=== PATIENT | female | born 1995 | race Caucasian/White ===

== ENCOUNTER 2022-11-14 04:40 | Emergency (ER) | payer SELFPAY ==
[2022-11-14 04:49] VITALS: BP 151/94; PULSE 92; RESP 16; TEMP 37; O2SAT 99; BMI 32.5
[2022-11-14 04:57] VITALS: BP 151/94; PULSE 94; RESP 16; O2SAT 100
--- NOTE | 2022-11-14 05:17 | ED_ITS ---
HPI - URI/Sore Throat General: Chief Complaint: Upper Respiratory Infection Stated Complaint: Throat Pain Cant Talk Time Seen by Provider: 11/14/22 04:49 Source: patient History of Present Illness: 27 year old female with several days of cough and congestion. She presents with increasing throat pain. She has a horse voice this morning. She kept thinking things would get better, but she did not. MD elicited complaint: cough, sore throat, rhinorrhea and nasal congestion Onset (ago): day(s) Consistency: constant and progressively worsening Severity: moderate Description of mucous: watery Able to tolerate fluids by mouth: Yes Associated symptoms: Reports change in voice, congestion, cough, nausea, rhinorrhea and sore throat; Deny abdominal pain, chills, chest pain, diarrhea, fever(s) or vomiting Review of Systems Const: Denies: fever(s) or chills ENMT: Reports: uvular edema Card: Denies: chest pain GI: Reports: nausea; Denies: abdominal pain, vomiting or diarrhea [facility] ED Female Reproductive History: Date of last menstrual period: 10/31/22 Physical Exam Const: COMMON NORMALS: no acute distress GENERAL APPEARANCE: cooperative; not ill appearing and not frail appearing HENMT: COMMON NORMALS: normocephalic, atraumatic and Normal external nose present HEAD & SCALP: normocephalic and atraumatic FACE & SINUS: normal facial exam and face symmetric NOSE: Normal external nose present MOUTH: Normal oral and palatal mucosa present THROAT: posterior oropharynx abnormal edema and erythema; no exudates and uvular edema Eye: COMMON NORMALS: Equal, round and reactive pupils present and EOMs intact bilaterally PUPIL: Yes Equal, round and reactive pupils present Neck/C-Spine: GENERAL: Yes trachea midline Chest: CHEST: Yes Symmetrical chest wall rise Resp: COMMON NORMALS: normal respiratory effort, No retractions, No use of accessory muscles and clear to auscultation bilaterally AUSCULTATION: clear to auscultation bilaterally Cardio: COMMON NORMALS: regular rate and regular rhythm RATE: regular rate RHYTHM: regular rhythm GI: COMMON NORMALS: Normal to inspection, nondistended, normoactive bowel sounds present Extremity: COMMON NORMALS: no pedal edema Neuro: ALLEN COMA SCALE: document GCS findings Allen coma scale eye opening: Spontaneous [place] coma scale verbal response: Orientated [place] coma scale motor response: Obey commands [place] coma scale total score: 15 SENSORY EXAM: Yes extremities (intact) Psych: COMMON NORMALS: speech normal SPEECH: Yes normal speech Skin: COMMON NORMALS: no rashes or lesions noted GENERAL SKIN EXAM: no rashes or lesions noted Course Vital Signs: Vital signs: Vital Signs Temperature 98.6 F 11/14/22 05:41 Pulse Rate 94 11/14/22 05:41 Respiratory Rate 16 11/14/22 05:41 Blood Pressure 151/94 11/14/22 05:41 Pulse Oximetry 100 11/14/22 05:41 MDM - URI/Sore Throat Medical Decision Making With over one week of symptoms, we'll go ahead and treat. She's given dexametha sone, antibiotics. Return for worsening symptoms. Discharge Plan Discharge Patient Disposition: Home Clinical Impression: Pharyngitis, Uvulitis Condition: Stable Prescriptions: New cephalexin 500 mg capsule 500 mg PO Q6H 10 Days Qty: 40 0RF ketorolac 10 mg tablet 10 mg PO TID PRN (Reason: pain) Qty: 10 0RF Discharge Orders: Discharge ED (Routine); Ordered 11/14/22 Ordered By: Troy Christiansen Patient Instructions: Tonsillitis (ED), Uvulitis (ED), Opioid Safety, Pain Management Activity Restrictions/Additional Instructions: Return for any worsening symptoms despite treatment Coding Level of Care Code ED Building Certifier for Bc Hinojosa
[2022-11-14] MEDS: dexamethasone 4 mg Tablet 10 MG PO (05:34)
[2022-11-14] MEDS: cephALEXin 500 mg Capsule PO (05:34)
[2022-11-14] MEDS: lidocaine 2% viscous 15 ML, aluminum-mag hydrox-simethicon 30 ML, sucralfate oral liq 1 GM PO (05:35)
[2022-11-14] MEDS: oxyCODONE-APAP 5-325 mg Tablet 1 TAB PO (05:35)
[2022-11-14 05:41] VITALS: BP 151/94; PULSE 94; RESP 16; TEMP 37; O2SAT 100
--- NOTE | 2022-12-03 14:56 | DCPLANNER ---
late entry - patient called due to no primary care physician - appointment scheduled with [facility]
== END 2022-11-14 05:42 | disposition home or self-care (01) ==
PROVIDERS: Emergency Provider Emergency Medicine
DX: J02.9 Acute pharyngitis, unspecified (principal); K12.2 Cellulitis and abscess of mouth
CPT/HCPCS: 99283; J8540

== ENCOUNTER 2022-12-22 04:02 | Emergency (ER) | payer SELFPAY ==
[2022-12-22 04:07] VITALS: BP 161/105; PULSE 80; RESP 18; TEMP 36.8; O2SAT 99; BMI 31.7
[2022-12-22] MEDS: cephALEXin 500 mg Capsule PO (04:16)
--- NOTE | 2022-12-22 04:20 | W.ED.DENTAL ---
HPI - Dental/Oral General: Chief complaint: Dental/Oral Stated complaint: ToothAche Time Seen by Provider: 12/22/22 04:08 Source: patient Mode of arrival: ambulatory Limitations: no limitations History of Present Illness: 27-year-old female states she has right lower dental pain she has had a tooth that is been chipped for quite some time but states she just started her job and had been able to get into a dentist due to cost states she started with pain today rates pain a 7 out of 10 denies any fever denies any difficulty swallowing. Associated symptoms: Denies fever(s) Review of Systems Const: Denies: fever(s), chills, body aches or change in appetite ENMT: Reports: mouth pain; Denies: throat pain or dental pain Card: Denies: chest pain Resp: Denies: dyspnea GI: Denies: abdominal pain, nausea, vomiting or diarrhea Musc: Denies: neck pain or back pain Skin/Breast: Denies: rash Neuro: Denies: headache(s) [facility] ED Female Reproductive History: Date of last menstrual period: 12/20/22 Physical Exam Const: COMMON NORMALS: no acute distress, patient oriented x3 and healthy appearing HENMT: COMMON NORMALS: normocephalic and atraumatic HEAD & SCALP: normocephalic and atraumatic OTHER: Poor dentition tenderness to right lower molar no abscess or trismus Neck/C-Spine: COMMON NORMALS: full ROM and supple Chest: COMMONS NORMALS: normal inspection of the chest Resp: COMMON NORMALS: normal respiratory effort Cardio: COMMON NORMALS: regular rate, regular rhythm and No murmurs present (Cardio) RATE: regular rate RHYTHM: regular rhythm GI: INSPECTION: Yes normal to inspection Extremity: COMMON NORMALS: normal to inspection and full ROM Neuro: COMMON NORMALS: patient oriented x3, moves all extremities and no focal motor deficits Psych: COMMON NORMALS: mental status grossly normal, Normal thought process present and cooperative THOUGHT PROCESS: Normal thought process present Skin: COMMON NORMALS: no rashes or lesions noted and no wounds GENERAL SKIN EXAM: no rashes or lesions noted Procedures Nerve Block Nerve Block 1: Time out performed: Yes Local Anesthetic: bupivacaine 0.5% Amount of anesthesia used (mL): 10 Side: right Intraoral Nerve Block: inferior alveolar Procedure Successful: Yes Patient Tolerated Procedure: well Complications: none Course Vital Signs: Vital signs: Vital Signs Temperature 98.2 F 12/22/22 04:07 Pulse Rate 80 12/22/22 04:07 Respiratory Rate 18 12/22/22 04:07 Blood Pressure 161/105 12/22/22 04:07 Pulse Oximetry 99 12/22/22 04:07 Oxygen Delivery Me thod Room Air 12/22/22 04:07 MDM - Dental/Oral Medical Decision Making Patient presents here with dental pain did a nerve block she has much improvement no trismus no abscess she is to follow-up with dentist we will place her on antibiotics. Discharge Plan Discharge Patient Disposition: Home Clinical Impression: Toothache, Dental caries Condition: Stable Prescriptions: New cephalexin 500 mg capsule 500 mg PO TID 7 Days Qty: 21 0RF No Action ketorolac 10 mg tablet 10 mg PO TID PRN (Reason: pain) Qty: 10 0RF Discharge Orders: Discharge ED (Routine); Ordered 12/22/22 Ordered By: Tad James Discharge Diet: Advance as tolerated Discharge Activity: Resume usual activity Patient Instructions: Toothache (ED) Coding Level of Care Code ED Mold Yard Supervisor for Bc Hinojosa
== END 2022-12-22 04:29 | disposition home or self-care (01) ==
PROVIDERS: Emergency Provider Emergency Medicine
DX: K02.9 Dental caries, unspecified (principal)
CPT/HCPCS: 64400; 99284; J3490

== ENCOUNTER 2023-04-19 01:37 | Emergency (ER) | payer SELFPAY ==
[2023-04-19 01:43] VITALS: BP 133/71; PULSE 92; RESP 16; TEMP 36.8; O2SAT 100; BMI 31.6
[2023-04-19 02:42] LABS: Add Urine Microscopic? YES; Bilirubin Urine Neg (Negative); Blood Urine 3+ (Negative); Glucose Urine UA Norm (Normal); Ketones Urine Negative (Negative); Leukocyte Esterase Urine 2+ (Negative); Nitrate Urine Negative (Negative); Protein Urine 2+ (Negative); RBC Urine TOO NUMEROUS TO CNT /hpf (0-2); Urine Appearance Cloudy (CLEAR); Urine Color Yellow (Yellow); Urobilinogen Urine Neg (Negative); WBC Urine TOO NUMEROUS TO CNT /hpf (0-5); pH Urine 6 (5-7)
[2023-04-19 02:43] LABS: Add Urine Culture? Yes
--- NOTE | 2023-04-19 02:53 | CTR_ITS ---
PROCEDURE INFORMATION: Exam: CT Abdomen And Pelvis Without Contrast Exam date and time: 04/19/2023 3:35 AM Age: 27 years old Clinical indication: Abdominal pain; Prior surgery; Surgery date: 6+ months; Surgery type: Laparotomy; Patient HX: Left flank pain with hematuria; Additional info: L flank pain, hematuria TECHNIQUE: Imaging protocol: Computed tomography of the abdomen and pelvis without contrast. Radiation optimization: All CT scans at this facility use at least one of these dose optimization techniques: automated exposure control; mA and/or kV adjustment per patient size (includes targeted exams where dose is matched to clinical indication); or iterative reconstruction. REPORTING DATA: Count of CT and Cardiac NM exams in prior 12 months: This patient has received 0 known CTs and 0 known cardiac nuclear medicine studies in the 12 months prior to the current study. COMPARISON: No relevant prior studies available. RADIATION DOSE METRICS: Total DLP (mGy-cm): 707.84 FINDINGS: Lungs: Clear. Liver: Unremarkable unenhanced appearance. Gallbladder and bile ducts: No calcified stones. Unremarkable unenhanced appearance. Pancreas: Unremarkable unenhanced appearance. Spleen: Unremarkable. Adrenal glands: Unremarkable. Kidneys and ureters: No hydronephrosis. No renal or ureteral calculi. Stomach and bowel: Moderate colonic stool burden. No bowel obstruction. Stomach is distended. Appendix: No evidence of appendicitis. Intraperitoneal space: No free air. No significant fluid collection. Vasculature: Limited evaluation without IV contrast. No aneurysm. Lymph nodes: Few prominent left pelvic sidewall nodes, nonspecific. Urinary bladder: Unremarkable as visualized. Reproductive: 3.5 cm cystic lesion in the left adnexa, incompletely characterized. Bones/joints: No acute fracture. No aggressive osseous lesions. Soft tissues: Unremarkable. CT/CT kidney stone [id number] IMPRESSION: 3.5 cm cystic lesion in the left adnexa, incompletely characterized. Recommend pelvic ultrasound for further characterization.
[2023-04-19 03:01] VITALS: RESP 18; O2SAT 93
[2023-04-19] MEDS: morphine 4 mg/mL SDV 1 mL IVP (03:01)
[2023-04-19] MEDS: ondansetron 2 mg/ML SDV 2 mL 4 MG IVP (03:01)
[2023-04-19] MEDS: sodium chloride 0.9% 1,000 ML 999 ML IV (03:02)
[2023-04-19 03:26] LABS: Basophils # 0.1 10^3/uL (0.0-0.1); Basophils % 0.8 %; Eosinophils # 0.4 10^3/uL (0.0-0.8); Eosinophils % 3.1 %; Hematocrit 38.6 % (36-47); Lymphocytes # 2.3 10^3/uL (0.8-4.8); Lymphocytes % 17.5 %; Mean Corpuscular HGB Conc 32.6 g/dL (30-55); Mean Corpuscular Volume 88.9 fl (85-98); Mean Platelet Volume 9.3 fL (7.4-10.4); Monocytes # 1.1 10^3/uL (0.2-0.9); Neutrophils # 9.41 10^3/uL (1.8-7.7); Neutrophils % 70.2 %; Nucleated Red Blood Cells % 0 %; Platelet Count 290 10^3/cmm (157-399); Red Blood Count 4.34 10^6/uL (3.85-5.65)
[2023-04-19 03:29] LABS: HCG Qualitative Urine. Negative (Negative)
[2023-04-19 03:43] LABS: Alanine Aminotransferase 13 U/L (0-33); Albumin Level 3.9 g/dL (3.5-5.2); Alkaline Phosphatase 70 U/L (35-105); Aspartate Amino Transferase 17 U/L (0-32); Blood Urea Nitrogen 9 mg/dL (6-20); Calcium 8.4 mg/dL (8.5-10.5); Carbon Dioxide 24 mmol/L (22-29); Chloride 108 mmol/L (98-107); Creatinine Clr Calc Pharmacy 108.4442; Globulin 2.3 g/dL (1.3-4.6); Glomerular Filtration Rate 84.8 mL/min (90-130); Glucose 84 mg/dL (65-115); Lipase 26 U/L (13-60); Osmolality Calculated 286 mOsm/kg (285-295); Sodium 139 mmol/L (136-145); Total Bilirubin 0.2 mg/dL (0.15-1.2); Total Protein 6.2 g/dL (6.6-8.7)
[2023-04-19 04:20] VITALS: PULSE 75; O2SAT 100
--- NOTE | 2023-04-19 04:36 | W.ED.FEMALGU ---
HPI - Female Genitourinary General: Chief complaint: Urogenital-Female Stated complaint: blood in urine Time Seen by Provider: 04/19/23 01:48 History of Present Illness: 27-year-old female with a history of urinary tract infections. She presents with left-sided flank pain, hematuria. No vomiting. She has had hematuria before with urinary tract infections. No history of kidney stones. She has not had fever. Associated symptoms: Deny abdominal pain or nausea Review of Systems Const: Denies: fever(s) or chills ENMT: Denies: throat pain Card: Denies: chest pain Resp: Denies: dyspnea or productive cough GI: Denies: abdominal pain, nausea or vomiting Physical Exam Const: COMMON NORMALS: no acute distress GENERAL APPEARANCE: cooperative; not ill appearing and not frail appearing HENMT: COMMON NORMALS: normocephalic, atraumatic and Normal external nose present HEAD & SCALP: normocephalic and atraumatic FACE & SINUS: normal facial exam and face symmetric NOSE: Normal external nose present Eye: COMMON NORMALS: Equal, round and reactive pupils present and EOMs intact bilaterally PUPIL: Yes Equal, round and reactive pupils present Neck/C-Spine: GENERAL: Yes trachea midline Chest: CHEST: Yes Symmetrical chest wall rise Resp: COMMON NORMALS: normal respiratory effort, No retractions, No use of accessory muscles and clear to auscultation bilaterally AUSCULTATION: clear to auscultation bilaterally Cardio: COMMON NORMALS: regular rate and regular rhythm RATE: regular rate RHYTHM: regular rhythm GI: COMMON NORMALS: Normal to inspection, nondistended, normoactive bowel sounds present PALPATION: Yes Tenderness to palpation present (GI) Details: LLQ : BLADDER/KIDNEY EXAM: Yes CVA tenderness on the left Back/Pelvis: GENERAL BACK: Yes CVA tenderness Extremity: COMMON NORMALS: no pedal edema Neuro: ALLEN COMA SCALE: document GCS findings Allen coma scale eye opening: Spontaneous Allen coma scale verbal response: Orientated Allen coma scale motor response: Obey commands [place] coma scale total score: 15 SENSORY EXAM: Yes extremities (intact) Psych: COMMON NORMALS: speech normal SPEECH: Yes normal speech Skin: COMMON NORMALS: no rashes or lesions noted GENERAL SKIN EXAM: no rashes or lesions noted Course Vital Signs: Vital signs: Vital Signs Temperature 98.3 F 04/19/23 01:43 Pulse Rate 75 04/19/23 04:20 Respiratory Rate 18 04/19/23 03:01 Blood Pressure 133/71 04/19/23 01:43 Pulse Oximetry 100 04/19/23 04:20 Oxygen Delivery Me thod Room Air 04/19/23 04:20 MDM - Female Medical Decision Making 27-year-old female with left-sided flank pain, hematuria. No vaginal discharge or bleeding. She is afebrile. Vitals are normal. White blood cell count is 13.4. CRP is 3. Urinalysis shows too many reds and whites to count. Leukocyte Estrace is positive at 2+. The patient has a 3.5 cm cystic lesion in the left adnexa. Follow-up ultrasound imaging is recommended. The patient was informed of this. Urinalysis shows evidence of hemorrhagic urinary tract infection. She will be treated with antibiotics. Will require repeat urine testing to ensure it clears. Lab Data 04/19/23 03:19 04/19/23 03:19 Radiology Impressions Abdomen/Pelvis CT 04/19/23 02:53 IMPRESSION: 3.5 cm cystic lesion in the left adnexa, incompletely characterized. Recommend pelvic ultrasound for further characterization. Laboratory Results WBC 13.40 10^3/uL (3.29-11.43) H 04/19/23 03:19 RBC 4.34 10^6/uL (3.85-5.65) 04/19/23 03:19 Hgb 12.60 g/dL (11.27-16.99) 04/19/23 03:19 Hct 38.6 % (36-47) 04/19/23 03:19 MCV 88.9 fl (85-98) 04/19/23 03:19 MCH 29.0 pg (27-33) 04/19/23 03:19 MCHC 32.6 g/dL (30-55) 04/19/23 03:19 RDW 15.0 % (12.1-15.1) 04/19/23 03:19 Plt Count 290 10^3/cmm (157-399) 04/19/23 03:19 MPV 9.3 fL (7.4-10.4) 04/19/23 03:19 Neut % (Auto) 70.2 % 04/19/23 03:19 Lymph % (Auto) 17.5 % 04/19/23 03:19 [place] % (Auto) 8.0 % 04/19/23 03:19 Eos % (Auto) 3.1 % 04/19/23 03:19 Baso % (Auto) 0.8 % 04/19/23 03:19 Neut # (Auto) 9.41 10^3/uL (1.8-7.7) H 04/19/23 03:19 Lymph # (Auto) 2.3 10^3/uL (0.8-4.8) 04/19/23 03:19 [place] # (Auto) 1.1 10^3/uL (0.2-0.9) H 04/19/23 03:19 Eos # (Auto) 0.4 10^3/uL (0.0-0.8) 04/19/23 03:19 Baso # (Auto) 0.1 10^3/uL (0.0-0.1) 04/19/23 03:19 Nucleated RBC % (auto) 0 % 04/19/23 03:19 Nucleated RBCs # 0.0 /100WBC 04/19/23 03:19 Sodium 139 mmol/L (136-145) 04/19/23 03:19 Potassium 4.0 mmol/L (3.5-5.1) 04/19/23 03:19 Chloride 108 mmol/L (98-107) H 04/19/23 03:19 Carbon Dioxide 24 mmol/L (22-29) 04/19/23 03:19 Anion Gap 11.0 (5-19) 04/19/23 03:19 BUN 9 mg/dL (6-20) 04/19/23 03:19 Creatinine 0.8 mg/dL (0.5-0.9) 04/19/23 03:19 GFR Calculation 84.8 mL/min (90-130) L 04/19/23 03:19 Glucose 84 mg/dL (65-115) 04/19/23 03:19 Calculated Osmolality 286 mOsm/kg (285-295) 04/19/23 03:19 Calcium 8.4 mg/dL (8.5-10.5) L 04/19/23 03:19 Total Bilirubin 0.2 mg/dL (0.15-1.2) 04/19/23 03:19 AST 17 U/L (0-32) 04/19/23 03:19 ALT 13 U/L (0-33) 04/19/23 03:19 Alkaline Phosphatase 70 U/L (35-105) 04/19/23 03:19 C-Reactive Protein 3.0 mg/L (0.0-4.9) 04/19/23 03:19 Total Protein 6.2 g/dL (6.6-8.7) L 04/19/23 03:19 Albumin 3.9 g/dL (3.5-5.2) 04/19/23 03:19 Globulin 2.3 g/dL (1.3-4.6) 04/19/23 03:19 Lipase 26 U/L (13-60) 04/19/23 03:19 HCG, Qual Negative (Negative) 04/19/23 01:52 Urine Color Yellow (Yellow) 04/19/23 01:52 Urine Appearance Cloudy (CLEAR) A 04/19/23 01:52 Urine pH 6 (5-7) 04/19/23 01:52 Ur Specific [place] 1.020 (1.005-1.030) 04/19/23 01:52 Urine Protein 2+ (Negative) H 04/19/23 01:52 Urine Glucose (UA) Norm (Normal) 04/19/23 01:52 Urine Ketones Negative (Negative) 04/19/23 01:52 Urine Blood 3+ (Negative) H 04/19/23 01:52 Urine Nitrate Negative (Negative) 04/19/23 01:52 Urine Bilirubin Neg (Negative) 04/19/23 01:52 Urine Urobilinogen Neg mg/dL (Negative) 04/19/23 01:52 Ur Leukocyte Esterase 2+ (Negative) H 04/19/23 01:52 Urine RBC Too numerous to cnt /hpf (0-2) H 04/19/23 01:52 Urine WBC Too numerous to cnt /hpf (0-5) H 04/19/23 01:52 Ur Squamous Epith Cells None /hpf (0-5) 04/19/23 01:52 Amorphous Sediment Not Reportable 04/19/23 01:52 Urine Bacteria None /hpf (NONE) 04/19/23 01:52 All radiology interpretation(s) finalized by discharge Discharge Plan Discharge Patient Disposition: Home Clinical Impression: Urinary tract infection, Hematuria Condition: Stable Prescriptions: New cefdinir 300 mg capsule 300 mg PO BID Qty: 14 0RF hydrocodone-acetaminophen 5-325 mg tablet 1 tab PO Q8H PRN (Reason: pain) Qty: 7 0RF Continued ketorolac 10 mg tablet 10 mg PO TID PRN (Reason: pain) Qty: 10 0RF Discharge Orders: Discharge ED (Routine); Ordered 04/19/23 Ordered By: Troy Christiansen Patient Instructions: Urinary Tract Infection in Women (ED), Hematuria (ED), Opioid Safety, Pain Management Activity Restrictions/Additional Instructions: Monitor for fever. Return for fever despite 2-3 doses of antibiotics, worsening pain despite treatment, vomiting liquids or medications, other concerning symptoms. Follow-up with your doctor later this week. You should have a repeat urine test to ensure that your urine is clearing. You also appear to have a left ovarian cyst which may need to be reimaged at some point. Be sure to tell your doctor this. Coding Level of Care Code ED Sweatband Perforator for Bc Hinojosa
[2023-04-19] MEDS: cefTRIAXone 1,000 MG in sodium chloride 0.9% (plus) 50 ML 100 MG IV (04:51)
[2023-04-19 04:53] VITALS: BP 127/75; PULSE 71; O2SAT 100
[2023-04-19 05:20] VITALS: BP 129/76; PULSE 77; RESP 16; O2SAT 97
== END 2023-04-19 05:22 | disposition home or self-care (01) ==
PROVIDERS: Emergency Provider Emergency Medicine
DX: N39.0 Urinary tract infection, site not specified (principal); R31.9 Hematuria, unspecified
CPT/HCPCS: 36415; 74176; 80053; 81001; 81025; 83690; 85025; 86140; 87077; 87086; 87186; 96365; 96375; 99285; J0696; J2270; J2405; J7030

== ENCOUNTER 2023-08-24 02:42 | Emergency (ER) | payer SELFPAY ==
--- NOTE | 2023-08-24 02:50 | ED_ITS ---
HPI - Dental/Oral General: Chief complaint: Dental/Oral Stated complaint: Mouth Pain top/bottom left Time Seen by Provider: 08/24/23 02:50 History of Present Illness: 27-year-old female presents emergency de partment complaints of left-sided jaw pain for the previous 3 days. She states she has been taking [id number] pain medication without relief. She states she does smoke cigarettes daily and has a history of gingivitis. She denies fevers chills or night sweats. She s tates she has not seen a dentist for this problem. She states her current pain is a aching throbbing pain that is a 5 out of 10 at present. She denies difficulty with phonation or swallowing. She denies neck or head pain. Associated symptoms: Denies odynophagia Review of Systems General: Reports: 10 or more systems reviewed and unremarkable except in HPI and below ENMT: Reports: mouth pain and dental pain; Denies: throat pain, odynophagia, bleeding gums or sinus pain Physical Exam Narrative: EXAM NARRATIVE: Constitutional: the patient appears well nourished and of normal development. Vital signs as documented. No acute distress at present. Alert and oriented-to person, place, time and situation. Head, eyes, ears, nose, mouth, throat: Normocephalic, atraumatic. Pupils-equal, round, reactive to light. No scleral icterus. Normal-appearing external ears. Normal appearing nasal turbinates, no drainage. No obvious oral lesions, posterior oropharynx without erythema or exudates. Significant erythema noted to the left upper and right upper gumline. No obvious abscess, Neck: Supple, trachea is midline, no lymphadenopathy, no jugular venous distension, thyromegaly, or carotid bruits. Lungs: clear to auscultation to all lung morales. Symmetrical rise and fall of chest, no obvious signs of increased work of breathing at present. Cardiac: Regular rate and rhythm, positive S1, S2. No murmurs, rubs or gallops that I can appreciate Abdomen: Soft, non-tender to palpation, normal active bowel sounds to all quadrants. Extremities: 2+ pulses in the upper extremities that are equal bilaterally, 2+ pulses in the lower extremities that are equal bilaterally. Non-edematous. Moves all extremities well, sensation to all extremities are noted. Skin: Warm, dry, intact. Course Vital Signs: Vital signs: Vital Signs Pulse Rate 88 08/24/23 03:06 Blood Pressure 146/100 08/24/23 03:06 Pulse Oximetry 100 08/24/23 03:06 Oxygen Delivery Me thod Room Air 08/24/23 03:06 MDM - Dental/Oral Medical Decision Making Physical exam completed and documented I have provided the patient with Toradol muscle injection as well as discharge instructions and recommend follow-up with her dentist I will provide her naproxen and Augmentin for her gingivitis and dental pain. It does appear that the patient has been seen here on 2 previous occasions with complaints of dental pain. Medical Records I reviewed the patient's medical records. All radiology interpretation(s) finalized by discharge Discharge Plan Discharge Patient Disposition: Home Clinical Impression: Toothache, Dental caries, Gingivitis Condition: Stable Prescriptions: New Augmentin 500-125 mg tablet 1 tab PO BID 7 Days Qty: 14 0RF naproxen 500 mg tablet 500 mg PO Q12H PRN (Reason: pain) Qty: 20 0RF No Action cefdinir 300 mg capsule 300 mg PO BID Qty: 14 0RF hydrocodone-acetaminophen 5-325 mg tablet 1 tab PO Q8H PRN (Reason: pain) Qty: 7 0RF ketorolac 10 mg tablet 10 mg PO TID PRN (Reason: pain) Qty: 10 0RF Discharge Orders: Discharge ED (Routine); Ordered 08/24/23 Ordered By: Santos Nguyen Discharge Diet: Advance as tolerated Discharge Activity: Resume usual activity Patient Instructions: Opioid Safety, Pain Management Coding Level of Care Code ED Medical Review Specialist for Bc Hinojosa
[2023-08-24 03:06] VITALS: BP 146/100; PULSE 88; O2SAT 100; BMI 32.5
[2023-08-24] MEDS: ketorolac 30 mg/mL INJ IM (03:32)
[2023-08-24 03:53] VITALS: BP 120/76; PULSE 75; RESP 16; TEMP 36.8; O2SAT 99
== END 2023-08-24 03:53 | disposition home or self-care (01) ==
PROVIDERS: Emergency Provider Internal Medicine
DX: K02.9 Dental caries, unspecified (principal); K05.10 Chronic gingivitis, plaque induced
CPT/HCPCS: 96372; 99284; J1885

== ENCOUNTER 2024-01-08 18:22 | Emergency (ER) | payer SELFPAY ==
[2024-01-08 18:30] VITALS: BP 149/84; PULSE 87; RESP 20; TEMP 36.8; O2SAT 100; BMI 33.5
[2024-01-08 18:44] VITALS: BP 149/84; PULSE 89; RESP 12; O2SAT 97
[2024-01-08 18:56] LABS: Basophils # 0.1 10^3/uL (0.0-0.1); Basophils % 1.1 %; Eosinophils # 0.2 10^3/uL (0.0-0.8); Eosinophils % 3.6 %; Hematocrit 43.3 % (36-47); Lymphocytes # 2.2 10^3/uL (0.8-4.8); Lymphocytes % 33.1 %; Mean Corpuscular HGB Conc 33.3 g/dL (30-55); Mean Corpuscular Hemoglobin 29.1 pg (27-33); Mean Corpuscular Volume 87.7 fl (85-98); Mean Platelet Volume 9.1 fL (7.4-10.4); Monocytes # 0.4 10^3/uL (0.2-0.9); Monocytes % 5.9 %; Neutrophils # 3.72 10^3/uL (1.8-7.7); Neutrophils % 56.1 %; Nucleated Red Blood Cells % 0 %; Platelet Count 333 10^3/cmm (157-399); Red Blood Count 4.94 10^6/uL (3.85-5.65); Red Cell Distribution Width 14.9 % (12.1-15.1); White Blood Count 6.62 10^3/uL (3.29-11.43)
--- NOTE | 2024-01-08 19:04 | ED_ITS ---
HPI - Seizure 2 General: Chief Complaint: Seizure Stated Complaint: SEIZURE Time Seen by Provider: 01/08/24 18:29 History of Present Illness: HPI Narrative: 28-year-old female who presents the [facility] room by ambulance from work after having what may have been a 22nd seizure. She has a history of seizures but has not taken meds for some time. She says that she does not know if this was a seizure that she was feeling kind of dizzy and dehydrated and thinks that may have been all it was. Apparently there is no postictal state. She is alert and oriented now. Related Data Previous Rx's Medication Instructions Recorded cefdinir 300 mg capsule 300 mg PO BID #14 caps 04/19/23 hydrocodone 5 mg-acetaminophen 325 1 tab PO Q8H PRN pain #7 tabs 04/19/23 mg tablet ketorolac 10 mg tablet 10 mg PO TID PRN pain #10 tabs 04/19/23 naproxen 500 mg tablet 500 mg PO Q12H PRN pain #20 tabs 08/24/23 Allergies Allergy/AdvReac Type Severity Reaction Status Date / Time metoclopramide [From Reglan] Allergy ADR-Vomitin Verified 08/24/23 03:11 g phenytoin [From Dilantin] Allergy Unknown Verified 08/24/23 03:11 Review of Systems 2 Narrative: Constitutional symptoms: Negative except as documented in HPI. Skin symptoms: Negative except as documented in HPI. Eye symptoms: Negative except as documented in HPI. ENMT symptoms: Negative except as documented in HPI. Respiratory symptoms: Negative except as documented in HPI. Cardiovascular symptoms: Negative except as documented in HPI. Gastrointestinal symptoms: Negative except as documented in HPI. Genitourinary symptoms: Negative except as documented in HPI. Musculoskeletal symptoms: Negative except as documented in HPI. Neurologic symptoms: Negative except as documented in HPI. Psychiatric symptoms: Negative except as documented in HPI. Endocrine symptoms: Negative except as documented in HPI. [facility] ED 2 Female Reproductive History: Date of last menstrual period: 12/03/23 Physical Exam 2 Narrative: EXAM NARRATIVE: General: Alert, no acute distress. Skin: Warm, dry. Head: Normocephalic, atraumatic. Neck: Supple, trachea midline. Eye: Extraocular movements are intact. Ears, nose, mouth and throat: mucosa moist. Cardiovascular: Regular, Normal peripheral perfusion. Respiratory: Lungs are clear to auscultation, respirations are non-labored, breath sounds are equal, Symmetrical chest wall expansion. Gastrointestinal: Soft, Nontender, Non distended Musculoskeletal: Normal ROM, no deformity. Neurological: Alert and oriented, No focal neurological deficit observed. Psychiatric: Cooperative, appropriate mood & affect. Course 2 Vital Signs: Vital signs: Vital Signs Temperature 98.2 F 01/08/24 18:30 Pulse Rate 85 01/08/24 19:26 Respiratory Rate 12 01/08/24 18:44 Blood Pressure 171/80 01/08/24 19:26 Pulse Oximetry 97 01/08/24 19:26 MDM - Seizure MDM Narrative Medical decision making narrative: Lab Review: Laboratory results were reviewed and interpreted by myself the emergency room physician. Lab work is unremarkable. No UTI. No renal failure. No leukocytosis. Lactate is negative so likely she did not have an actual seizure. She feels like she just got dizzy. I reviewed the patient's medical record. Reexamination: Patient remained stable. No increased work of breathing. No altered mental status. No focal motor deficits. Assessment and plan: Dehydration Seizure-like activity ? Normal saline bolus in the emergency room - Discharged home - Discussed plan with patient. Answered any questions. - Evaluation and treatment of this problem were appropriate in the emergency setting. Lab Data 01/08/24 18:49 01/08/24 18:49 Labs: Laboratory Results WBC 6.62 10^3/uL (3.29-11.43) 01/08/24 18:49 RBC 4.94 10^6/uL (3.85-5.65) 01/08/24 18:49 Hgb 14.40 g/dL (11.27-16.99) 01/08/24 18:49 Hct 43.3 % (36-47) 01/08/24 18:49 MCV 87.7 fl (85-98) 01/08/24 18:49 MCH 29.1 pg (27-33) 01/08/24 18:49 MCHC 33.3 g/dL (30-55) 01/08/24 18:49 RDW 14.9 % (12.1-15.1) 01/08/24 18:49 Plt Count 333 10^3/cmm (157-399) 01/08/24 18:49 MPV 9.1 fL (7.4-10.4) 01/08/24 18:49 Neut % (Auto) 56.1 % 01/08/24 18:49 Lymph % (Auto) 33.1 % 01/08/24 18:49 Giles % (Auto) 5.9 % 01/08/24 18:49 Eos % (Auto) 3.6 % 01/08/24 18:49 Baso % (Auto) 1.1 % 01/08/24 18:49 Neut # (Auto) 3.72 10^3/uL (1.8-7.7) 01/08/24 18:49 Lymph # (Auto) 2.2 10^3/uL (0.8-4.8) 01/08/24 18:49 Giles # (Auto) 0.4 10^3/uL (0.2-0.9) 01/08/24 18:49 Eos # (Auto) 0.2 10^3/uL (0.0-0.8) 01/08/24 18:49 Baso # (Auto) 0.1 10^3/uL (0.0-0.1) 01/08/24 18:49 Nucleated RBC % (auto) 0 % 01/08/24 18:49 Nucleated RBCs # 0.0 /100WBC 01/08/24 18:49 Sodium 138 mmol/L (136-145) 01/08/24 18:49 Potassium 4.2 mmol/L (3.5-5.1) 01/08/24 18:49 Chloride 102 mmol/L (98-107) 01/08/24 18:49 Carbon Dioxide 25 mmol/L (22-29) 01/08/24 18:49 Anion Gap 15.2 (5-19) 01/08/24 18:49 BUN 12 mg/dL (6-20) 01/08/24 18:49 Creatinine 0.7 mg/dL (0.5-0.9) 01/08/24 18:49 GFR Calculation 98.3 mL/min (90-130) 01/08/24 18:49 Glucose 94 mg/dL (65-115) 01/08/24 18:49 Calculated Osmolality 286 mOsm/kg (285-295) 01/08/24 18:49 Lactic Acid 1.2 mmol/L (0.5-2.2) 01/08/24 18:49 Calcium 9.5 mg/dL (8.5-10.5) 01/08/24 18:49 Total Bilirubin 0.3 mg/dL (0.15-1.2) 01/08/24 18:49 AST 27 U/L (0-32) 01/08/24 18:49 ALT 17 U/L (0-33) 01/08/24 18:49 Alkaline Phosphatase 76 U/L (35-105) 01/08/24 18:49 Total Protein 7.8 g/dL (6.6-8.7) 01/08/24 18:49 Albumin 4.7 g/dL (3.5-5.2) 01/08/24 18:49 Globulin 3.1 g/dL (1.3-4.6) 01/08/24 18:49 HCG, Qual Negative (Negative) 01/08/24 18:49 Urine Color Yellow (Yellow) 01/08/24 19:22 Urine Appearance Clear (CLEAR) 01/08/24 19:22 Urine pH 7.0 (5-7) 01/08/24 19:22 Ur Specific [place] 1.008 (1.005-1.030) 01/08/24 19:22 Urine Protein Negative (Negative) 01/08/24 19:22 Urine Glucose (UA) Negative (Normal) 01/08/24 19:22 Urine Ketones Negative (Negative) 01/08/24 19:22 Urine Blood Negative (Negative) 01/08/24 19:22 Urine Nitrate Negative (Negative) 01/08/24 19:22 Urine Bilirubin Negative (Negative) 01/08/24 19:22 Urine Urobilinogen 0.2 mg/dL (Negative) 01/08/24 19:22 Ur Leukocyte Esterase Negative (Negative) 01/08/24 19:22 Urine RBC 0-2 /hpf (0-2) 01/08/24 19:22 Urine WBC 0-5 /hpf (0-5) 01/08/24 19:22 Ur Squamous Epith Cells 0-5 /hpf (0-5) 01/08/24 19:22 Amorphous Sediment Not Reportable 01/08/24 19:22 Urine Bacteria None seen /hpf (NONE) 01/08/24 19:22 Hyaline Casts 0-4 /lpf H 01/08/24 19:22 No radiology studies performed this visit Discharge Plan Discharge Patient Disposition: Home Clinical Impression: Seizure-like activity, Dehydration Condition: Stable Prescriptions: No Action cefdinir 300 mg capsule 300 mg PO BID Qty: 14 0RF hydrocodone-acetaminophen 5-325 mg tablet 1 tab PO Q8H PRN (Reason: pain) Qty: 7 0RF ketorolac 10 mg tablet 10 mg PO TID PRN (Reason: pain) Qty: 10 0RF naproxen 500 mg tablet 500 mg PO Q12H PRN (Reason: pain) Qty: 20 0RF Discharge Orders: Discharge ED (Routine); Ordered 01/08/24 Ordered By: Heidi Macedo Discharge Diet: Usual diet Discharge Activity: Increase activity as tolerated Patient Instructions: Nonepileptic Seizures (ED) Activity Restrictions/Additional Instructions: Thank you for choosing [facility] for your healthcare needs today. Please realize this is an emergency room and that we are providing you with a medical screening exam and this may not be complete and all inclusive of all the testing and or work up that you may need to determine your ailment or severity of your illness. You have been screened and evaluated and felt safe for discharge. Health conditions do change or evolve sometimes and as such it is important that you follow up with your Primary Doctor to be re checked, 3-5 days is a general good time frame for follow up. 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
[2024-01-08] MEDS: sodium chloride 0.9% 1,000 ML 999 ML IV (19:05)
[2024-01-08 19:07] LABS: HCG, Serum Qual Negative (Negative)
[2024-01-08 19:14] LABS: Alanine Aminotransferase 17 U/L (0-33); Albumin Level 4.7 g/dL (3.5-5.2); Alkaline Phosphatase 76 U/L (35-105); Anion Gap 15.2 (5-19); Aspartate Amino Transferase 27 U/L (0-32); Blood Urea Nitrogen 12 mg/dL (6-20); Calcium 9.5 mg/dL (8.5-10.5); Carbon Dioxide 25 mmol/L (22-29); Chloride 102 mmol/L (98-107); Creatinine Clr Calc Pharmacy 126.5226; Globulin 3.1 g/dL (1.3-4.6); Glomerular Filtration Rate 98.3 mL/min (90-130); Glucose 94 mg/dL (65-115); Osmolality Calculated 286 mOsm/kg (285-295); Potassium 4.2 mmol/L (3.5-5.1); Sodium 138 mmol/L (136-145); Total Bilirubin 0.3 mg/dL (0.15-1.2); Total Protein 7.8 g/dL (6.6-8.7)
[2024-01-08 19:15] LABS: Lactic Sepsis W/Reflex 1.2 mmol/L (0.5-2.2)
[2024-01-08 19:26] VITALS: BP 171/80; PULSE 85; O2SAT 97
[2024-01-08 19:32] LABS: Bilirubin Urine Negative (Negative); Blood Urine Negative (Negative); Glucose Urine UA Negative (Normal); Ketones Urine Negative (Negative); Leukocyte Esterase Urine Negative (Negative); Nitrate Urine Negative (Negative); Protein Urine Negative (Negative); Specific Gravity, Urine 1.008 (1.005-1.030); Urine Appearance Clear (CLEAR); Urine Color Yellow (Yellow); Urobilinogen Urine 0.2 mg/dL (Negative)
[2024-01-08 19:36] LABS: Bacteria Urine None Seen /hpf; Hyaline Casts Urine 0-4 /lpf; RBC Urine 0-2 /hpf (0-2); Squamous Epithelial Cell Urine 0-5 /hpf (0-5); WBC Urine 0-5 /hpf (0-5)
[2024-01-08 20:07] VITALS: BP 135/66; PULSE 83; RESP 22; O2SAT 99
== END 2024-01-08 20:08 | disposition home or self-care (01) ==
PROVIDERS: Emergency Provider Emergency Medicine
DX: R56.9 Unspecified convulsions (principal); E86.0 Dehydration
CPT/HCPCS: 36415; 80053; 81001; 83605; 84703; 85025; 99284; J7030

== ENCOUNTER 2024-06-28 00:49 | Emergency (ER) | payer SELFPAY ==
[2024-06-28 01:02] VITALS: BP 133/89; PULSE 78; RESP 16; TEMP 36.7; O2SAT 98; BMI 34.3
--- NOTE | 2024-06-28 01:24 | ED_ITS ---
HPI - Dental/Oral General: Chief complaint: Dental/Oral Stated complaint: Tooth Ache Time Seen by Provider: 06/28/24 01:07 History of Present Illness: Patient presents to the ER with complaints of dental pain in her left lower lateral premolar area. She has no teeth in this area that she said she has pain there frequently. She has seen a dentist before about this pain and they state she does not have any dental fragments underneath the surface but she think she may have an infection. She just got hired on a new position and does not have dental insurance yet. She has used Augmentin before in the past. Related Data Previous Rx's Medication Instructions Recorded amoxicillin 875 mg-potassium 1 tab PO Q12H #20 tabs 06/28/24 clavulanate 125 mg tablet meloxicam 7.5 mg tablet 7.5 mg PO .Twice daily #14 tabs 06/28/24 Allergies Allergy/AdvReac Type Severity Reaction Status Date / Time metoclopramide [From Reglan] Allergy ADR-Vomitin Verified 06/28/24 01:04 g phenytoin [From Dilantin] Allergy Unknown Verified 06/28/24 01:04 Review of Systems General: Reports: 10 or more systems reviewed and unremarkable except in HPI and below Physical Exam Const: COMMON NORMALS: no acute distress, average body habitus, patient oriented x3, no limitations, healthy appearing, alert and well nourished HENMT: COMMON NORMALS: normocephalic, atraumatic, hearing grossly normal bilaterally, external ears normal, Normal external nose present, moist oral mucous membranes and gingiva normal HEAD & SCALP: normocephalic and atraumatic NOSE: Normal external nose present EXTERNAL EAR: Yes external ears normal Neck/C-Spine: COMMON NORMALS: full ROM, no lymphadenopathy, supple, no meningeal signs, no JVD and Thyroid normal THYROID: Thyroid normal Chest: COMMONS NORMALS: normal inspection of the chest and normal palpation of entire chest wall Resp: COMMON NORMALS: normal respiratory effort, No retractions, No use of accessory muscles and clear to auscultation bilaterally AUSCULTATION: clear to auscultation bilaterally Cardio: COMMON NORMALS: no JVD, regular rate, regular rhythm, S1 normal heart sound present, S2 normal heart sound present, No gallops present (Cardio), No clicks present (Cardio), No murmurs present (Cardio) and No rub (Cardio) RATE: regular rate RHYTHM: regular rhythm HEART SOUNDS: S1 normal heart sound present and S2 normal heart sound present Neuro: COMMON NORMALS: patient oriented x3 SENSORIUM/ORIENTATION: Yes alert MENINGEAL SIGNS: Yes no meningeal signs Course Vital Signs: Vital signs: Vital Signs Temperature 98.1 F 06/28/24 01:02 Pulse Rate 78 06/28/24 01:02 Respiratory Rate 16 06/28/24 01:02 Blood Pressure 133/89 06/28/24 01:02 Pulse Oximetry 98 06/28/24 01:02 Oxygen Delivery Me thod Room Air 06/28/24 01:02 MDM - Dental/Oral Medical Decision Making This patient probably has a dental infection. Should be treated with Augmentin and viscous lidocaine to dab on the area every couple hours as needed for pain. Medical Records I reviewed the patient's medical records. Lab Data I reviewed the patient's lab results. No radiology studies performed this visit Discharge Plan Discharge Patient Disposition: Home Clinical Impression: Pain, dental Condition: Stable Prescriptions: New meloxicam 7.5 mg tablet 7.5 mg PO .Twice daily Qty: 14 0RF amoxicillin-pot clavulanate 875-125 mg tablet 1 tab PO Q12H Qty: 20 0RF Discontinued cefdinir 300 mg capsule 300 mg PO BID Qty: 14 0RF hydrocodone-acetaminophen 5-325 mg tablet 1 tab PO Q8H PRN (Reason: pain) Qty: 7 0RF ketorolac 10 mg tablet 10 mg PO TID PRN (Reason: pain) Qty: 10 0RF naproxen 500 mg tablet 500 mg PO Q12H PRN (Reason: pain) Qty: 20 0RF Discharge Orders: Discharge ED (Routine); Ordered 06/28/24 Ordered By: Donald Bland Patient Instructions: Toothache (ED) Activity Restrictions/Additional Instructions: Please take all medicines directed. Please follow-up with your dentist when you get insurance for definitive treatment. 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
[2024-06-28] MEDS: amoxicillin-clav 875-125 mg Tablet 1 TAB PO (01:29)
[2024-06-28] MEDS: lidocaine 2% viscous 15 mL UDC TOPICAL (01:30)
[2024-06-28] MEDS: ketorolac 60 mg/2 mL INJ IM (01:44)
== END 2024-06-28 01:53 | disposition home or self-care (01) ==
PROVIDERS: Emergency Provider Emergency Medicine
DX: K08.89 Other specified disorders of teeth and supporting structures (principal)
CPT/HCPCS: 96372; 99284; J1885

== ENCOUNTER 2024-09-01 10:47 | Emergency (ER) | payer SELFPAY ==
[2024-09-01 10:59] VITALS: BP 145/99; PULSE 87; RESP 17; TEMP 36.7; O2SAT 99; BMI 34.3
--- NOTE | 2024-09-01 11:14 | ED_ITS ---
HPI - Dental/Oral 2 General: Chief complaint: Dental/Oral Stated complaint: mouth pain Time Seen by Provider: 09/01/24 11:05 Source: patient Mode of arrival: ambulatory Limitations: no limitations History of Present Illness: Patient is a 28-year-old female who presents today with left sided dental pain for the past 2 days. Patient notes that 2 days ago she began to have mild right sided dental pain however the pain then migrated to the left side. Patient reports that she has a chipped tooth on the left side that she needs to have removed. Patient notes that she did call her dentist, however they were unable to get her an appointment today but does have an appointment scheduled for Wednesday. She has not noticed any facial or neck swelling. No difficulty eating or drinking or controlling saliva. No fevers. She states she has had ongoing issues with the left molars before. She has been using [id number] analgesics as well as topical viscous lidocaine and Orajel without relief. States she has been prescribed Augmentin and currently taking this. Teeth map: 1. 2. Onset (ago): day(s) Duration: constant Severity: severe Exacerbating factors: nothing Associated symptoms: Reports no associated symptoms; Denies fever(s) or odynophagia Treatment prior to arrival: topical analgesic and oral analgesic Related Data Previous Rx's ?Medication ?Instructions ?Recorded amoxicillin 875 mg-potassium 1 tab PO Q12H #20 tabs clavulanate 125 mg tablet meloxicam 7.5 mg tablet 7.5 mg PO .Twice daily #14 t abs 06/28/24 acetaminophen 300 mg-codeine 30 mg 1 tab PO Q6H PRN pa in #14 tabs 09/01/24 tablet Allergies Allergy/AdvReac Type Severity Reaction Status Date / Time metoclopramide (From Reglan) Allergy ADR-Vomitin Verified 06/28/24 01:04 g phenytoin (From Dilantin) Allergy Unknown Verified 06/28/24 01:04 Review of Systems 2 Const: Denies: fever(s), chills, body aches, fatigue or malaise ENMT: Reports: dental pain; Denies: throat pain, odynophagia, hoarseness, mouth pain, swelling of lips/tongue, oral sores, nasal discharge, nasal congestion or sinus pain Card: Denies: chest pain Resp: Denies: dyspnea GI: Denies: abdominal pain Musc: Denies: neck pain, back pain, extremity pain, extremity swelling or joint swelling Skin/Breast: Denies: rash Neuro: Denies: headache(s) Physical Exam 2 Const: COMMON NORMALS: no acute distress, average body habitus, patient oriented x3, no limitations, healthy appearing, alert and well nourished G ENERAL APPEARANCE: cooperative ORIENTATION/CONSCIOUSNESS: Yes awake, Yes oriented to person, Yes oriented to place and Yes oriented to time HENMT: FACE & SINUS: normal facial exam; no erythema and no edema MOUTH: Normal oral and palatal mucosa present, lip normal, tongue normal and Normal salivary glands and ducts present TEETH & GINGIVA IMAGES: 1. 2. pain/possible crack/fracture; no swel ling/abscess formation THROAT: posterior oropharynx normal and tonsils normal Neck/C-Spine: COMMON NORMALS: no lymphadenopathy GENERAL: No anterior neck swelling and No submandibular swelling Neuro: COMMON NORMALS: patient oriented x3 SENSORIUM/ORIENTATION: Yes alert, Yes oriented to person, Yes oriented to place and Yes oriented to time Course 2 Vital Signs: Vital signs: Vital Signs Temperature 98.0 F 09/01/24 10:59 Pulse Rate 87 09/01/24 10:59 Respiratory Rate 17 09/01/24 10:59 Blood Pressure 145/99 09/01/24 10:59 Pulse Oximetry 99 09/01/24 10:59 Oxygen Delivery Me thod Room Air 09/01/24 10:59 MDM - Dental/Oral Medical Decision Making Patient has dental appointment on Wednesday. She is currently on Augmentin. She is doing topical analgesics as well as [id number] oral Tylenol and Ibuprofen. She states she is sensitive to most medications and does not want to use opiate pain medication. We spoke about possibly trying some Tylenol 3 to see if this gives her any further relief. Differential Diagnosis Likely dental caries and toothache Medical Records I reviewed the patient's medical records. No radiology studies performed this visit Discharge Plan Discharge Patient Disposition: Home Clinical Impression: Toothache, Fracture of tooth Condition: Stable Prescriptions: New acetaminophen-codeine 300-30 mg tablet 1 tab PO Q6H PRN (Reason: pain) Qty: 14 0RF No Action meloxicam 7.5 mg tablet 7.5 mg PO .Twice daily Qty: 14 0RF amoxicillin-pot clavulanate 875-125 mg tablet 1 tab PO Q12H Qty: 20 0RF Discharge Orders: Discharge ED (Routine); Ordered 09/01/24 Ordered By: Eboni Ramírez Patient Instructions: Toothache (ED) Activity Restrictions/Additional Instructions: Please follow-up with your dentist on Wednesday as scheduled. 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
[2024-09-01] MEDS: ketorolac 60 mg/2 mL INJ IM (11:42)
[2024-09-01 11:54] VITALS: BP 130/86; PULSE 74; O2SAT 98
== END 2024-09-01 11:55 | disposition home or self-care (01) ==
PROVIDERS: Emergency Provider Physician Assistant
DX: K08.89 Other specified disorders of teeth and supporting structures (principal); S02.5XXA Fracture of tooth (traumatic), initial encounter for closed fracture; X58.XXXA Exposure to other specified factors, initial encounter
CPT/HCPCS: 96372; 99284; J1885